=== PATIENT | male | born 2000 | race Caucasian/White ===

== ENCOUNTER 2021-08-24 04:27 | Emergency (ER) | payer BC, OTHER ==
[2021-08-24] MEDS ORDERED: Lidocaine 2% with EPINEPHrine 1:200,000 20 ML SDV ONE (04:58)
[2021-08-24 05:20] LABS: METHAMPHETAMINES,URINE NEGATIVE (NEGATIVE)
[2021-08-24] MEDS ORDERED: Ondansetron 4 MG Tab.DIS ONE (05:20)
[2021-08-24] MEDS ORDERED: Ondansetron 4 MG Tab.DIS PO ONE (05:20)
[2021-08-24 05:21] LABS: AMPHETAMINES,URINE NEGATIVE (NEGATIVE); BARBITURATES,URINE NEGATIVE (NEGATIVE); BENZODIAZEPINE,URINE NEGATIVE (NEGATIVE); MDMA (ECSTASY), URINE NEGATIVE (NEGATIVE); METHADONE,URINE NEGATIVE (NEGATIVE); OPIATES,URINE NEGATIVE (NEGATIVE); OXYCODONE,URINE NEGATIVE (NEGATIVE); PHENCYCLIDINE,URINE NEGATIVE (NEGATIVE); TCA,URINE NEGATIVE (NEGATIVE)
[2021-08-24 05:35] LABS: CHLORIDE,CL 102 mmol/L (98-107); SODIUM,NA 140 mmol/L (136-145)
== END 2021-08-24 06:22 | disposition home or self-care (01) ==
LOC: DL.ED 04:27
DX: S01.01XA Laceration without foreign body of scalp, initial encounter (principal); W10.9XXA Fall (on) (from) unspecified stairs and steps, initial encounter
CPT/HCPCS: 12002; 36415; 70450; 72125; 80053; 80305-QW; 80307; 85025; 99284; 99284-25; A9270-GY

== ENCOUNTER 2023-11-29 07:58 | Emergency (ER) | payer BC ==
[2023-11-29] MEDS: Lidocaine 1% 5 ML VIAL ONE (08:10)
[2023-11-29] MEDS: Diphtheria,Pertussis(Acell),Tetanus Vaccine 0.5 ML Syringe IM ONE (09:10)
[2023-11-29] MEDS: Bacitracin Oint 1 GM U/D Packet TOP ONE (09:10)
== END 2023-11-29 09:13 | disposition home or self-care (01) ==
LOC: DL.ED 07:58
DX: S61.213A Laceration without foreign body of left middle finger without damage to nail, initial encounter (principal); Z23 Encounter for immunization; X58.XXXA Exposure to other specified factors, initial encounter
CPT/HCPCS: 12041; 90471; 90715; 99282; A9270; J3490